=== PATIENT | female | born 1950 | race American Indian/Alaskan Native ===

== ENCOUNTER 2018-02-05 00:10 | Emergency (ER) | payer MEDICARE ==
[2018-02-05] MEDS ORDERED: ATROVENT IH ONE (00:45)
[2018-02-05] MEDS ORDERED: PROVENTIL IH ONE (00:45)
--- NOTE | 2018-02-05 00:51 | Emergency Department Report ---
ED Shortness of Breath HPI - General Chief Complaint: Dyspnea/Respdistress Stated Complaint: BENJI Time Seen by Provider: 02/05/18 00:34 Source: patient, EMS Mode of arrival: Stretcher Limitations: Other - History of Present Illness Initial Comments: Patient is 67-year-old female history of COPD, CHF, hypertension and schizophrenia. Patient presented via EMS for evaluation of shortness of breath for the last 3 days. Patient stated that she has been having shortness of breath when she walks and diffuse wheezing also patient is on oxygen at home. Patient denied any fever recently. Patient's stated that she went to [facility] but they're waiting time was much so they decided to come to our ER. MD Complaint: shortness of breath, cough -: days(s) Severity: moderate Known History Of: COPD Associated Symptoms: cough - Related Data Home Medications Medication Instructions Recorded Confirmed Last Taken ALPRAZolam [Xanax TAB] 1 mg PO Q6H PRN 10/14/15 10/14/15 Unknown Budesonide [Pulmicort Respules] 0.5 mg IH Q12HR 10/14/15 10/14/15 10/14/15 FLUoxetine [PROzac] 20 mg PO QDAY 10/14/15 10/14/15 10/14/15 Levothyroxine [Synthroid] 100 mcg PO QAM 10/14/15 10/14/15 10/14/15 amLODIPine [Norvasc] 5 mg PO DAILY 10/14/15 10/14/15 10/14/15 glipiZIDE [glipiZIDE ER] 5 mg PO QAM 10/14/15 10/14/15 10/14/15 risperiDONE [RisperDAL] 2 mg PO BID 10/14/15 10/14/15 10/14/15 Previous Rx's Medication Instructions Recorded Last Taken Type Ipratropium/Albuterol Sulfate 1 ampul IH Q6HRT PRN #120 ampul.neb 10/15/15 Unknown Rx [DUONEB *Not for PRN Use*] Allergies Allergy/AdvReac Type Severity Reaction Status Date / Time No Known Allergies Allergy Unverified 10/14/15 16:02 ED Review of Systems ROS: Stated complaint: BENJI Other details as noted in HPI Comment: All other systems reviewed and negative Constitutional: denies: chills, fever Respiratory: cough, orthopnea, shortness of breath, SOB with exertion, SOB at rest, wheezing Cardiovascular: chest pain, dyspnea on exertion, orthopnea, paroxysmal nocturnal dyspnea. denies: palpitations Gastrointestinal: denies: abdominal pain, nausea, vomiting, diarrhea, constipation, hematemesis, melena, hematochezia Neurological: denies: headache, weakness, numbness, paresthesias, confusion ED Past Medical Hx - Past Medical History Previous Medical History?: Yes Hx Hypertension: Yes Hx Congestive Heart Failure: Yes Hx Diabetes: Yes Hx Psychiatric Treatment: Yes (Bipolar/Schizophrenia) Hx COPD: Yes Additional medical history: Sleep Apnea, CPAP at Night, Home o2 user 3 liters - Surgical History Past Surgical History?: Yes Additional Surgical History: Thyroidectomy - Social History Smoking Status: Former Smoker - Medications Home Medications: Home Medications Medication Instructions Recorded Confirmed Last Taken Type ALPRAZolam [Xanax TAB] 1 mg PO Q6H PRN 10/14/15 10/14/15 Unknown History Budesonide [Pulmicort Respules] 0.5 mg IH Q12HR 10/14/15 10/14/15 10/14/15 History FLUoxetine [PROzac] 20 mg PO QDAY 10/14/15 10/14/15 10/14/15 History Levothyroxine [Synthroid] 100 mcg PO QAM 10/14/15 10/14/15 10/14/15 History amLODIPine [Norvasc] 5 mg PO DAILY 10/14/15 10/14/15 10/14/15 History glipiZIDE [glipiZIDE ER] 5 mg PO QAM 10/14/15 10/14/15 10/14/15 History risperiDONE [RisperDAL] 2 mg PO BID 10/14/15 10/14/15 10/14/15 History Ipratropium/Albuterol Sulfate 1 ampul IH Q6HRT PRN #120 ampul.neb 10/15/15 Unknown Rx [DUONEB *Not for PRN Use*] ED Physical Exam - General Limitations: No Limitations, Other General appearance: alert, in no apparent distress - Head Head exam: Present: atraumatic, normocephalic, normal inspection - Eye Eye exam: Present: normal appearance, PERRL - ENT ENT exam: Present: normal exam, normal orophraynx, mucous membranes moist - Neck Neck exam: Present: normal inspection, full ROM. Absent: tenderness, meningismus, lymphadenopathy - Respiratory Respiratory exam: Present: respiratory distress (moderate), wheezes, rhonchi, decreased breath sounds, prolonged expiratory. Absent: rales, stridor - Cardiovascular Cardiovascular Exam: Present: regular rate, normal rhythm, normal heart sounds - GI/Abdominal GI/Abdominal exam: Present: soft, normal bowel sounds. Absent: distended, tenderness, guarding, rebound, rigid, organomegaly, mass, bruit, pulsatile mass , hernia - Extremities Exam Extremities exam: Present: normal inspection, full ROM, normal capillary refill - Back Exam Back exam: Present: normal inspection, full ROM. Absent: tenderness, CVA tenderness (R), CVA tenderness (L), muscle spasm, paraspinal tenderness - Neurological Exam Neurological exam: Present: alert, oriented X3, CN II-XII intact, normal gait - Skin Skin exam: Present: warm, intact, normal color ED Course Vital Signs 02/05/18 02/05/18 00:27 01:00 Temperature 98.0 F Pulse Rate 62 Respiratory 22 22 Rate Blood Pressure 163/89 O2 Sat by Pulse 97 97 Oximetry - Reevaluation(s) Reevaluation #1: 02/05/18 03:06 Patient stated that she is feeling much better. I advised patient to follow obvious R primary care physician in the next 2-3 days. I wrote for prednisone for 5 days and albuterol and Levaquin. I advised patient to return to the ER if symptoms are not improving. ED Medical Decision Making - Lab Data Result diagrams: 02/05/18 00:53 02/05/18 00:53 - EKG Data -: EKG Interpreted by Mn EKG shows normal: sinus rhythm Rate: tachycardia - EKG Data Interpretation: no acute changes - Radiology Data Radiology results: report reviewed Referring Physician: GREGORY DELVALLE Patient Name: NOMI SUAREZ Date of : 1950 Sex: Female Report Date: 2018-02-05 Report Status: Finalized Findings [facility] [address] [place] [address] XRay Report Signed Patient: NOMI SUAREZ MR#: [id number] : 1950 Acct:[id number] Age/Sex: 67 / F ADM Date: 02/05/18 Loc: ED Attending Dr: Ordering Physician: GREGORY DELVALLE Date of Service: 02/05/18 Procedure(s): XR chest 1V ap Accession Number(s): [id number] cc: GREGORY DELVALLE Fluoro Time In Minutes: FINAL REPORT PROCEDURE: XR CHEST 1V AP TECHNIQUE: A portable AP chest radiograph was obtained at 02/05/2018 04:53 (GMT) . CPT 35774 HISTORY: Shortness of breath. COMPARISON: No prior studies are available for comparison. FINDINGS: Heart: Mild cardiomegaly. Mediastinum/Vessels: Normal. Lungs/Pleural space: Mild right perihilar and lower lobe linear opacities. Blunting of the right costophrenic angle. Bony thorax: No acute osseous abnormality. Life support devices: Overlying monitoring leads. IMPRESSION: Mild cardiomegaly. Mild right perihilar and lower lobe linear opacities, likely scarring/atelectasis. Small right pleural effusion. Transcribed By: GEO Dictated By: JAX FUNG MD Electronically Authenticated By: JAX FUNG MD Signed Date/Time: 02/05/18119 DD/ 9 TD/TT: 02/05/18119 Critical care attestation.: If time is entered above; I have spent that time in minutes in the direct care of this critically ill patient, excluding procedure time. ED Disposition Clinical Impression: COPD (chronic obstructive pulmonary disease), Acute bronchitis Disposition: DC-01 TO HOME OR SELFCARE Is pt being admited?: No Condition: Stable Instructions: Chronic Obstructive Pulmonary Disease (ED), Acute Bronchitis (ED)
--- NOTE | 2018-02-05 01:25 | XRay Report ---
FINAL REPORT PROCEDURE: XR CHEST 1V AP TECHNIQUE: A portable AP chest radiograph was obtained at 02/05/2018 04:53 (T) . CPT 14161 HISTORY: Shortness of breath. COMPARISON: No prior studies are available for comparison. FINDINGS: Heart: Mild cardiomegaly. Mediastinum/Vessels: Normal. Lungs/Pleural space: Mild right perihilar and lower lobe linear opacities. Blunting of the right costophrenic angle. Bony thorax: No acute osseous abnormality. Life support devices: Overlying monitoring leads. IMPRESSION: Mild cardiomegaly. Mild right perihilar and lower lobe linear opacities, likely scarring/atelectasis. Small right pleural effusion.
[2018-02-05 01:29] LABS: BUN/Creatinine Ratio 13; Blood Urea Nitrogen 8 mg/dL (7-17); Calcium 8.3 mg/dL (8.4-10.2); Hemolysis Index 1
[2018-02-05 01:34] LABS: Alanine Aminotransferase 27 units/L (7-56); Albumin 3.5 g/dL (3.9-5)
[2018-02-05 01:54] LABS: Bilirubin,Direct < 0.2 mg/dL (0-0.2)
[2018-02-05 02:10] LABS: Basophils # (Auto) 0.1 K/mm3 (0.0-0.1); Eosinophils # (Auto) 0.3 K/mm3 (0.0-0.4); Eosinophils % (Auto) 4.7 % (0.0-4.3); Hematocrit 29.7 % (30.3-42.9); Hemoglobin 10.6 gm/dl (10.1-14.3); Lymphocytes # (Auto) 2.2 K/mm3 (1.2-5.4); Mean Corpuscular HGB Conc 36 % (30-34); Mean Corpuscular Hemoglobin 27 pg (28-32); Mean Corpuscular Volume 76 fl (79-97); Monocytes # (Auto) 0.3 K/mm3 (0.0-0.8); Monocytes % (Auto) 5.1 % (0.0-7.3); Platelet Count 204 K/mm3 (140-440); Red Blood Count 3.91 M/mm3 (3.65-5.03); Red Cell Distribution Width 16.8 % (13.2-15.2)
[2018-02-05] MEDS ORDERED: LEVAQUIN PO ONE (03:06)
[2018-02-05 04:27] VITALS: BP 163/70
== END 2018-02-05 05:00 | disposition home or self-care (01) ==
LOC: ED 00:10
DX: J44.9 Chronic obstructive pulmonary disease, unspecified (principal); J20.9 Acute bronchitis, unspecified; I11.0 Hypertensive heart disease with heart failure; E11.9 Type 2 diabetes mellitus without complications; F31.9 Bipolar disorder, unspecified; F20.9 Schizophrenia, unspecified; G47.30 Sleep apnea, unspecified; E89.0 Postprocedural hypothyroidism; Z87.891 Personal history of nicotine dependence
CPT/HCPCS: 36415; 71045; 80048; 80074; 83880; 84484; 85025; 93005; 93010; 94640; 96374; 99284; J2930

== ENCOUNTER 2018-06-20 08:47 | Emergency (ER) | payer MEDICARE ==
[2018-06-20 08:56] VITALS: BP 154/70
[2018-06-20 09:47] LABS: Basophils % (Auto) 0.5 % (0.0-1.8); Eosinophils # (Auto) 0.2 K/mm3 (0.0-0.4); Eosinophils % (Auto) 2.3 % (0.0-4.3); Hematocrit 35.4 % (30.3-42.9); Hemoglobin 11.4 gm/dl (10.1-14.3); Lymphocytes # (Auto) 2.5 K/mm3 (1.2-5.4); Lymphocytes % (Auto) 27.2 % (13.4-35.0); Mean Corpuscular HGB Conc 32 % (30-34); Mean Corpuscular Volume 76 fl (79-97); Monocytes # (Auto) 0.5 K/mm3 (0.0-0.8); Monocytes % (Auto) 5.6 % (0.0-7.3); Platelet Count 274 K/mm3 (140-440); Red Blood Count 4.66 M/mm3 (3.65-5.03)
[2018-06-20 09:51] LABS: Mean Corpuscular Hemoglobin 24 pg (28-32)
[2018-06-20 10:06] LABS: BUN/Creatinine Ratio 17; Blood Urea Nitrogen 12 mg/dL (7-17); Calcium 9.4 mg/dL (8.4-10.2); Hemolysis Index 10
== END 2018-06-20 10:42 | disposition left against medical advice (07) ==
LOC: ED 08:47
DX: R07.9 Chest pain, unspecified (principal); Z53.21 Procedure and treatment not carried out due to patient leaving prior to being seen by health care provider
CPT/HCPCS: 36415; 80048; 84484; 85025; 93005; 93010

== ENCOUNTER 2019-01-16 18:36 | Emergency (ER) | payer MEDICARE ==
--- NOTE | 2019-01-16 18:51 | Emergency Department Report ---
Blank Doc - Documentation Documentation: This is a 68-year-old female that presents with chest pain and shortness of br eathe. Stated chest pain radiates to left shoulder/arm. Patient stated also has right eye pain. This initial assessment/diagnostic orders/clinical plan/treatment(s) is/are subject to change based on patient's health status, clinical progression and re- assessment by fellow clinical providers in the ED. Further treatment and workup at subsequent clinical providers discretion. Patient/guardians urged not to elope from the ED as their condition may be serious if not clinically assessed and managed. Initial orders include: 1- Patient sent to MAIN ED for further evaluation and treatment 2- labs 3- EKG 4- CXR
[2019-01-16 19:15] LABS: Basophils # (Auto) 0.1 K/mm3 (0.0-0.1); Basophils % (Auto) 0.7 % (0.0-1.8); Eosinophils # (Auto) 0.6 K/mm3 (0.0-0.4); Eosinophils % (Auto) 5.2 % (0.0-4.3); Hematocrit 34.1 % (30.3-42.9); Hemoglobin 11.2 gm/dl (10.1-14.3); Lymphocytes # (Auto) 3.1 K/mm3 (1.2-5.4); Lymphocytes % (Auto) 28.7 % (13.4-35.0); Mean Corpuscular HGB Conc 33 % (30-34); Mean Corpuscular Volume 76 fl (79-97); Monocytes # (Auto) 0.6 K/mm3 (0.0-0.8); Monocytes % (Auto) 5.2 % (0.0-7.3); Platelet Count 337 K/mm3 (140-440); Red Blood Count 4.46 M/mm3 (3.65-5.03); Red Cell Distribution Width 16.6 % (13.2-15.2)
[2019-01-16 19:25] LABS: INR 0.9 (0.87-1.13); Partial Thromboplastin Time 29.7 Sec. (24.2-36.6)
[2019-01-16 19:42] LABS: Alanine Aminotransferase 16 units/L (7-56); Albumin 3.7 g/dL (3.9-5); BUN/Creatinine Ratio 20; Blood Urea Nitrogen 12 mg/dL (7-17); Calcium 9.4 mg/dL (8.4-10.2); Hemolysis Index 4
--- NOTE | 2019-01-16 19:45 | XRay Report ---
PROCEDURE: XR CHEST ROUTINE 2V TECHNIQUE: Chest 2 views HISTORY: Chest Pain COMPARISONS: FINDINGS: Cardiac and mediastinal contours are unremarkable. No focal infiltrate identified. No pleural fluid c ollection seen. Pulmonary vasculature is unremarkable. IMPRESSION: Normal two-view chest. This document is electronically signed by Levar Poon MD., January 16 2019 07:42:37 PM ET
[2019-01-16] MEDS ORDERED: TETRACAINE 0.5% OU STA (20:22)
[2019-01-16] MEDS ORDERED: NACL 0.9% 500 ML 500 ML IV ONE (20:22)
[2019-01-16] MEDS ORDERED: FUL-GLO OP ONE (20:22)
[2019-01-16] MEDS ORDERED: IBUPROFEN PO ONE (20:22)
[2019-01-16] MEDS ORDERED: TYLENOL PO ONE (20:22)
--- NOTE | 2019-01-16 20:24 | Emergency Department Report ---
ED General Adult HPI - General Chief complaint: Chest Pain Stated complaint: CHEST PAIN/SOB Time Seen by Provider: 01/16/19 18:48 Source: patient, family, RN notes reviewed Mode of arrival: Wheelchair Limitations: Other (patient is a poor historian.) - History of Present Illness Initial comments: Primary care Dr.: Dr. Micky So Ophthalmology: Dr. Earl, in [place] Past medical history: Schizophrenia, bipolar, sleep apnea, chronic respiratory failure, on CPAP, diabetes and hypertension This is a 68-year-old female. The patient is not known to this provider previously. History is mostly obtained from the patient's sister, Mrs. Shruti Storm; [phone] The patient presents to the emergency room with a complaint of right-sided eye discomfort, left shoulder pain, and chest pain. Patient had elective outpatient ophthalmology procedure in May 2018. Uncertain as to the nature of the procedure. Ever since that procedure, the patient has been reporting some right superior eyelids discomfort, subjective swelling, and discomfort in the nasal aspect of the right eye. There is intermittent right eye redness. There is no recent trauma that the family is aware of. As per Miss Storm, the patient's sister, they have followed up multiple times with their private outpatient tomb maker helper, and were told "everything is all righ t." Today, the patient presents with her typical right sided superior eyelid discomfort, and redness. This particular episode has been going on for a few weeks. It does not appear to radiate anywhere, and does not have exacerbating or relieving factors. The patient's next complaint is left-sided shoulder pain. This has been going on for weeks to months. The patient cannot describe the nature of the pain. It is apparently worsened with movement, and decreases with rest. This was discussed with her primary care doctor, who ordered an outpatient x-ray. Uncertain if this x-ray has been performed. The next complaint is chest pain. The chest pain is apparently central and left-sided. The chest pain has been present for weeks to months. The patient reports that the chest pain does not have exacerbating or relieving factors. The patient denies vomiting or diaphoresis. The patient has chronic shortness of breath. The patient did comment that the chest pain moved to her left shou lder and left arm. This was also discussed with her primary care doctor, as per her sister, a few weeks ago, and they were referred to outpatient cardiology. However, the patient's sister indicates that nobody is answering her phone calls. Apparently, the patient had an EKG and blood work done for her chest pain, at her primary care doctor's office, and the patient's sister indicates that all t hese tests were "normal." The patient is basically reliant on the sister for help with her activities of daily living and medical care. The patient's sister indicates that she feels that the patient exaggerated her complaints of chest pain today in order to get "attention." -: week(s), month(s) Location: eyes, chest, left Radiation: extremity Severity scale (0 -10): 9 Quality: aching Consistency: intermittent Improves with: other Worsens with: other Associated Symptoms: chest pain, shortness of breath - Related Data Home Medications Medication Instructions Recorded Confirmed Last Taken ALPRAZolam [Xanax TAB] 1 mg PO Q6H PRN 10/14/15 10/14/15 Unknown Budesonide [Pulmicort Respules] 0.5 mg IH Q12HR 10/14/15 10/14/15 10/14/15 FLUoxetine [PROzac] 20 mg PO QDAY 10/14/15 10/14/15 10/14/15 Levothyroxine [Synthroid] 100 mcg PO QAM 10/14/15 10/14/15 10/14/15 amLODIPine [Norvasc] 5 mg PO DAILY 10/14/15 10/14/15 10/14/15 glipiZIDE [glipiZIDE ER] 5 mg PO QAM 10/14/15 10/14/15 10/14/15 risperiDONE [RisperDAL] 2 mg PO BID 10/14/15 10/14/15 10/14/15 Previous Rx's Medication Instructions Recorded Last Taken Type Ipratropium/Albuterol Sulfate 1 ampul IH Q6HRT PRN #120 ampul.neb 10/15/15 Unknown Rx [DUONEB *Not for PRN Use*] ALBUTEROL Inhaler (OR & NICU) 2 puff IH QID PRN #1 inhalation 02/05/18 Unknown Rx [ProAir HFA Inhaler] Prednisone [predniSONE 10 mg 10 mg PO .TAPER #1 tab.ds.pk 02/05/18 Unknown Rx (6-Day Pack, 21 Tabs)] levoFLOXacin [Levaquin TAB] 500 mg PO QDAY #7 tablet 02/05/18 Unknown Rx Acetaminophen [Tylenol Arthritis] 650 mg PO Q6HR PRN #30 tablet.er 01/16/19 Unknown Rx Famotidine [Pepcid] 20 mg PO BID #30 tablet 01/16/19 Unknown Rx Glycerin/Propylene Glycol 30 ml OD Q2HR PRN #1 bottle 01/16/19 Unknown Rx [Artificial Tears Drops] Allergies Allergy/AdvReac Type Severity Reaction Status Date / Time No Known Allergies Allergy Verified 01/16/19 18:38 ED Review of Systems ROS: Stated complaint: CHEST PAIN/SOB Other details as noted in HPI Constitutional: denies: fever, malaise Eyes: eye pain. denies: eye discharge, vision change ENT: denies: congestion Respiratory: shortness of breath. denies: cough Cardiovascular: chest pain Gastrointestinal: denies: nausea, vomiting Genitourinary: denies: dysuria Musculoskeletal: arthralgia. denies: myalgia Skin: denies: lesions Neurological: denies: headache, weakness ED Past Medical Hx - Past Medical History Hx Hypertension: Yes Hx Congestive Heart Failure: Yes Hx Diabetes: Yes Hx Psychiatric Treatment: Yes (Bipolar/Schizophrenia) Hx COPD: Yes Additional medical history: Sleep Apnea, CPAP at Night, Home o2 user 3 liters - Surgical History Past Surgical History?: Yes Additional Surgical History: Thyroidectomy - Social History Smoking Status: Never Smoker Substance Use Type: None - Medications Home Medications: Home Medications Medication Instructions Recorded Confirmed Last Taken Type ALPRAZolam [Xanax TAB] 1 mg PO Q6H PRN 10/14/15 10/14/15 Unknown History Budesonide [Pulmicort Respules] 0.5 mg IH Q12HR 10/14/15 10/14/15 10/14/15 History FLUoxetine [PROzac] 20 mg PO QDAY 10/14/15 10/14/15 10/14/15 History Levothyroxine [Synthroid] 100 mcg PO QAM 10/14/15 10/14/15 10/14/15 History amLODIPine [Norvasc] 5 mg PO DAILY 10/14/15 10/14/15 10/14/15 History glipiZIDE [glipiZIDE ER] 5 mg PO QAM 10/14/15 10/14/15 10/14/15 History risperiDONE [RisperDAL] 2 mg PO BID 10/14/15 10/14/15 10/14/15 History Ipratropium/Albuterol Sulfate 1 ampul IH Q6HRT PRN #120 ampul.neb 10/15/15 Unknown Rx [DUONEB *Not for PRN Use*] ALBUTEROL Inhaler (OR & NICU) 2 puff IH QID PRN #1 inhalation 02/05/18 Unknown Rx [ProAir HFA Inhaler] Prednisone [predniSONE 10 mg 10 mg PO .TAPER #1 tab.ds.pk 02/05/18 Unknown Rx (6-Day Pack, 21 Tabs)] levoFLOXacin [Levaquin TAB] 500 mg PO QDAY #7 tablet 02/05/18 Unknown Rx Acetaminophen [Tylenol Arthritis] 650 mg PO Q6HR PRN #30 tablet.er 01/16/19 Unknown Rx Famotidine [Pepcid] 20 mg PO BID #30 tablet 01/16/19 Unknown Rx Glycerin/Propylene Glycol 30 ml OD Q2HR PRN #1 bottle 01/16/19 Unknown Rx [Artificial Tears Drops] ED Physical Exam - General Limitations: No Limitations, Other (patient is a poor historian) General appearance: alert, in no apparent distress, obese - Head Head exam: Present: atraumatic, normocephalic - Eye Eye exam: Present: normal appearance, PERRL, EOMI (there is no direct or consensual photophobia), conjunctival injection (right sided conjunctival injection), other (visual acuity intact to finger counting, color perception, reading at a close distance) - ENT ENT exam: Present: normal exam, normal orophraynx, mucous membranes moist, normal external ear exam - Neck Neck exam: Present: normal inspection, full ROM. Absent: tenderness, meningismus - Respiratory Respiratory exam: Present: normal lung sounds bilaterally. Absent: respiratory distress - Cardiovascular Cardiovascular Exam: Present: regular rate, normal rhythm, normal heart sounds. Absent: bradycardia, tachycardia, irregular rhythm, systolic murmur, diastolic murmur, rubs, gallop - GI/Abdominal GI/Abdominal exam: Present: soft. Absent: distended, tenderness, guarding, rebound, rigid, pulsatile mass - Extremities Exam Extremities exam: Present: normal inspection, full ROM, other (2+ pulses noted in the bilateral upper, lower extremities. Compartments soft. No long bony tenderness. The pelvis is stable.). Absent: pedal edema, joint swelling, calf tenderness - Back Exam Back exam: Present: normal inspection, full ROM. Absent: tenderness, CVA tenderness (R), paraspinal tenderness, vertebral tenderness - Neurological Exam Neurological exam: Present: alert, other (Extraocular movements intact. Tongue midline. No facial droop. Facial sensation intact to light touch in the V1, V2, V3 distribution bilaterally. 5 and 5 strength in 4 extremities.. Sensation is intact to light touch in 4 extremities.). Absent: motor sensory deficit - Psychiatric Psychiatric exam: Present: normal affect, normal mood - Skin Skin exam: Present: warm, dry, intact, normal color. Absent: rash ED Course Vital Signs 01/16/19 18:50 Temperature 98.4 F Pulse Rate 74 Respiratory 18 Rate Blood Pressure 168/96 [Left] O2 Sat by Pulse 97 Oximetry - Reevaluation(s) Reevaluation #1: 01/16/19 20:53 Differential diagnosis, including not limited to: Conjunctivitis, postoperative ocular discomfort, chronic, left shoulder arthritis, pneumonia, acute coronary syndrome, GERD, gastritis, pulmonary embolus Assessment and plan: 68-year-old female with multiple complaints, all of which have been present for weeks to months. Complaint #1: Ocular pain; present since May 2018. Family reports multiple evaluations with her outpatient tomb maker helper. There is no direct or consensual photophobia, there is no haziness to the cornea, there is no Valery sign, there is negative fluorescein uptake, extraocular movements are intact, there is no temporal tenderness, there is no jaw claudication. This ocular complaint does not appear to represent an emergent condition, and the family is counseled to follow up with her outpatient tomb maker helper. Complaint #2: Left-sided shoulder pain; no fracture or dislocation noted on x- ray. Physical exam not consistent with cellulitis, abscess, or compartment syndrome. X-ray unremarkable. This can be managed expectantly with physical therapy as needed, pain control as needed, and follow up with her outpatient primary care doctor. Complaint #3: Chest pain EKG unchanged 2, troponin negative 2, CT scan of the chest is pending at this time, patient's vascular risk factors are reviewed and appreciated, however the history provided by the sister indicates that this chest pain is present for weeks to months. It is not really new or different. Extensive discussion had with the patient's sister. She understands the patient is at low risk for major adverse cardiac event. She prefers to be discharged to follow-up with an outpatient hardboard grinder complete the patient's cardiac risk stratification. She is concerned about the risks of hospitalization, including delirium, sundowning, slip and fall, DVT, hospital-acquired diarrhea. Through shared decision making, the sister and I agreed to have the patient closely follow up with outpatient cardiology. Reevaluation #2: 01/16/19 21:21 X-ray of the left shoulder negative for acute disease. Troponin negative 2. CT scan of the chest interpretation is pending. Patient reports "I feel better." She is asking to eat and drink. She is in no distress. She is smiling, and appears quite comfortable. Reevaluation #3: 01/16/19 22:23 X-ray the shoulder negative for acute disease. CT scan of the chest negative for acute disease. Esophagitis is suggested. Patient resting comfortably in the emergency room, 4 hours, without any distress, or any clinical decompensation. Extensive discussion had with patient, sister and family, who verbalized understanding. We have discussed diet and left modification as well as need for close outpatient follow-up. Family endorses understanding. ED Medical Decision Making - Lab Data Result diagrams: 01/16/19 18:56 01/16/19 18:56 Vital Signs 01/16/19 18:50 Temperature 98.4 F Pulse Rate 74 Respiratory 18 Rate Blood Pressure 168/96 [Left] O2 Sat by Pulse 97 Oximetry Lab Results 01/16/19 01/16/19 01/16/19 Range/Units 18:56 18:56 18:56 WBC 10.8 (4.5-11.0) K/mm3 RBC 4.46 (3.65-5.03) M/mm3 Hgb 11.2 (10.1-14.3) gm/dl Hct 34.1 (30.3-42.9) % MCV 76 L (79-97) fl MCH 25 L (28-32) pg MCHC 33 (30-34) % RDW 16.6 H (13.2-15.2) % Plt Count 337 (140-440) K/mm3 Lymph % (Auto) 28.7 (13.4-35.0) % [place] % (Auto) 5.2 (0.0-7.3) % Eos % (Auto) 5.2 H (0.0-4.3) % Baso % (Auto) 0.7 (0.0-1.8) % Lymph # 3.1 (1.2-5.4) K/mm3 [place] # 0.6 (0.0-0.8) K/mm3 Eos # 0.6 H (0.0-0.4) K/mm3 Baso # 0.1 (0.0-0.1) K/mm3 Seg Neutrophils % 60.2 (40.0-70.0) % Seg Neutrophils # 6.5 (1.8-7.7) K/mm3 PT 12.7 (12.2-14.9) Sec. INR 0.90 (0.87-1.13) APTT 29.7 (24.2-36.6) Sec. D-Dimer 843.94 H (0-234) ng/mlDDU Sodium 140 (137-145) mmol/L Potassium 4.2 (3.6-5.0) mmol/L Chloride 100.5 (98-107) mmol/L Carbon Dioxide 29 (22-30) mmol/L Anion Gap 15 mmol/L BUN 12 (7-17) mg/dL Creatinine 0.6 L (0.7-1.2) mg/dL Estimated GFR > 60 ml/min BUN/Creatinine Ratio 20 % Glucose 132 H (65-100) mg/dL Calcium 9.4 (8.4-10.2) mg/dL Total Bilirubin 0.30 (0.1-1.2) mg/dL AST 19 (5-40) units/L ALT 16 (7-56) units/L Alkaline Phosphatase 91 (35-129) units/L Troponin T < 0.010 (0.00-0.029) ng/mL Total Protein 7.9 (6.3-8.2) g/dL Albumin 3.7 L (3.9-5) g/dL Albumin/Globulin Ratio 0.9 % - EKG Data -: EKG Interpreted by Nv EKG shows normal: sinus rhythm Rate: normal - EKG Data When compared to previous EKG there are: no significant change 01/16/19 20:56 EKG #1 shows sinus bradycardia, 59 bpm, normal axis, normal intervals, poor Atrial enlargement, poor R-wave progression V2, abnormal EKG, appears to be unchanged from prior EKG from January 2018. - Radiology Data Radiology results: pending, report reviewed, image reviewed Critical care attestation.: If time is entered above; I have spent that time in minutes in the direct care of this critically ill patient, excluding procedure time. ED Disposition Clinical Impression: Pain, eye, right, Left shoulder pain, Chest pain Disposition: TO HOME OR SELFCARE Is pt being admited?: No Does the pt Need Aspirin: No Condition: Good Instructions: Eye Pain (ED), Chest Pain (ED) Additional Instructions: Do not take metformin for the next 48 hours, if patient takes this medication. Continue outpatient medications otherwise, including the aspirin that was recently prescribed by the patient's primary care doctor. Use artificial tears as directed. Follow-up with your private tomb maker helper, Dr. Earl, within the next 7-10 days. Jalil Earl MDcritical care nurse practitioner in [place], [place] Address: [address] [place] [address] Hours: Follow up with any of the listed cardiology doctors within the next 3-5 days. Return to the emergency room right away with new pain, worsening pain, migration of pain, productive vomiting, change in mental status, confusion, new, worsening or different symptoms. Avoid consumption of avoid consumption of Motrin, ibuprofen, Naprosyn, Aleve, heavy, spicy foods, coffee, caffeinated beverages. Consume plenty of fruits, fibers, vegetables, drinks 6-8 cups of water per day. Follow up with a pondman within the next 4-6 weeks. Please make certain that the patient is not rubbing things on her eye. Prescriptions: Glycerin/Propylene Glycol [Artificial Tears Drops] 30 ml OD Q2HR PRN #1 bottle PRN Reason: Pain , Severe (7-10) Famotidine [Pepcid] 20 mg PO BID #30 tablet Acetaminophen [Tylenol Arthritis] 650 mg PO Q6HR PRN #30 tablet.er PRN Reason: Pain Referrals: [facility] [Provider Group] - 3-5 Days [facility] [Provider Group] - 3-5 Days ESTRELLA GOMEZ MD [Staff Physician] - 3-5 Days RICCARDO PHILLIPS MD [Staff Physician] - 3-5 Days [facility] [Provider Group] - 3-5 Days
--- NOTE | 2019-01-16 21:40 | XRay Report ---
PROCEDURE: XR SHOULDER 2+V LT TECHNIQUE: 3 views left shoulder HISTORY: left shoudler COMPARISONS: FINDINGS: No fracture or dislocation identified. AC joint is intact. The humeral joint space is unremarkable. IMPRESSION: Negative shoulder series. This document is electronically signed by Levar Poon MD., January 16 2019 09:38:05 PM ET
--- NOTE | 2019-01-16 21:45 | Cat Scan Report ---
PROCEDURE: CT ANGIO CHEST HISTORY: cp sob FINDINGS: Contrast-enhanced CT angiography of the chest was performed following the intravenous administration of aortic [place] contrast. Sagittal and coronal three-dimensional reformatted images were generated. These images demonstrate no CT evidence of pulmonary thromboembolic disease. There is no aortic disse ction. There is no acute consolidative pulmonary infiltrate. There is no pleural or pericardial effusion. There is wall thickening of the distal esophagus, consistent with esophagitis. In the upper abdomen the visualized portion of the liver and spleen are unremarkable. IMPRESSION: No CT evidence of pulmonary thromboembolic disease Wall thickening of distal esophagus consistent with esophagitis This document is electronically signed by Steve Brito MD., January 16 2019 09:43:04 PM ET
[2019-01-16 22:26] VITALS: BP 161/70
== END 2019-01-16 22:36 | disposition home or self-care (01) ==
LOC: ED 18:36
DX: R07.89 Other chest pain (principal); H57.89 Other specified disorders of eye and adnexa; M25.512 Pain in left shoulder; I11.0 Hypertensive heart disease with heart failure; I50.9 Heart failure, unspecified; E11.9 Type 2 diabetes mellitus without complications; J44.9 Chronic obstructive pulmonary disease, unspecified
CPT/HCPCS: 36415; 71046; 71275; 73030; 80053; 84484; 85025; 85379; 85610; 85730; 93005; 93010; 99285; J7040; Q9967